=== PATIENT | female | born 1960 | race Two or more races ===

== ENCOUNTER 2024-09-29 13:05 | Inpatient (IN) | payer OTHER ==
[~2024-09-29] VITALS: Ht 162.6 cm; Wt 63.5 kg
[2024-09-29] MEDS ORDERED: METF-442 PO (13:18)
[2024-09-29 13:35] LABS: BASOPHILS # (AUTO) 0.2 K/UL (0.0-0.2); BASOPHILS % (AUTO) 2.4 % (0.0-2.0); EOSINOPHILS # (AUTO) 0.1 K/uL (0.0-0.7); EOSINOPHILS % (AUTO) 1.2 % (0.0-7.0); HEMATOCRIT 34.3 % (31.2-41.9); HEMOGLOBIN 10.6 g/dL (10.9-14.3); LYMPHOCYTES # (AUTO) 1.9 K/uL (0.8-4.8); LYMPHOCYTES % (AUTO) 28.3 % (20.5-51.5); MEAN CORPUSCULAR HEMOGLOBIN 19.1 uug (24.7-32.8); MEAN CORPUSCULAR HGB CONC 31 g/dL (32.3-35.6); MEAN CORPUSCULAR VOLUME 62.2 fL (75.5-95.3); MONOCYTES # (AUTO) 0.4 K/uL (0.1-1.30); MONOCYTES % (AUTO) 5.4 % (0.0-11.0); NEUTROPHILS # (AUTO) 4.3 K/uL (1.8-8.9); NEUTROPHILS % (AUTO) 62.7 % (38.5-71.5); PLATELET COUNT (AUTO) 214 K/uL (179-408); RED BLOOD CELL COUNT(AUTO) 5.52 MIL/uL (3.63-4.92); RED CELL DISTRIBUTION WIDTH 16.7 % (12.3-17.7); WHITE BLOOD COUNT (AUTO) 6.9 K/uL (3.8-11.8)
[2024-09-29 13:42] LABS: DIFFERENTIAL COMMENT 1
[2024-09-29] MEDS ORDERED: METOCLOPRAMIDE HCL 10 MG/2 ML VIAL ONE (13:46)
[2024-09-29] MEDS ORDERED: MORPHINE SULFATE 4 MG/1 ML DISP.SYRIN ONE (13:46)
[2024-09-29 13:50] LABS: CALCIUM 8.8 mg/dL (8.5-10.1); CREATININE 0.5 mg/dL (0.6-1.3); POTASSIUM 3.6 mmol/L (3.5-5.1)
[2024-09-29] MEDS: IV NORMAL SALINE 1000 ML BAG IV ONE (13:55)
[2024-09-29] MEDS: MORPHINE SULFATE 4 MG/1 ML DISP.SYRIN IV ONE (14:39)
[2024-09-29] MEDS: METOCLOPRAMIDE HCL 10 MG/2 ML VIAL IV ONE (14:39)
[2024-09-29 17:09] VITALS: BP 133/57; TEMP 98.5; O2SAT 96
[2024-09-29 19:45] VITALS: BP 149/65; TEMP 98.9; O2SAT 93
[2024-09-29] MEDS: MORPHINE SULFATE 2 MG/1 ML DISP.SYRIN IV PRN (20:58)
[2024-09-29] MEDS ORDERED: ACETAMINOPHEN 325 MG TABLET PO PRN (21:30)
[2024-09-29] MEDS ORDERED: REMEDY ESSENTIAL ZINC PASTE 113 GM TP PRN (21:30)
[2024-09-29] MEDS: IV NS 1000 ML 1,000 ML IV PRN (21:53)
[2024-09-29] MEDS: ENOXAPARIN SODIUM 40 MG/0.4 ML DISP.SYRIN SQ SCH (21:55)
[2024-09-29] MEDS ORDERED: DEXTROSE 50% 50 ML DISP.SYRIN IV PRN (23:00)
[2024-09-29] MEDS: BLOOD SUGAR DIAGNOSTIC 1 EACH STRIP VI SCH (23:25)
[2024-09-29] MEDS: INSULIN REGULAR, HUMAN 300 UNITS/3 ML VIAL SQ PRN (23:26)
[2024-09-30 05:12] VITALS: BP 148/75; TEMP 98.3; O2SAT 90
[2024-09-30 05:14] LABS: *BILIRUBIN,URIN NEGATIVE (NEGATIVE); *BLOOD, URINE 2+ (NEGATIVE); *CLARITY,URINE CLEAR (CLEAR); *COLOR,URINE YELLOW (YELLOW); *KETONES,URINE 2+ (NEGATIVE); *PROTEIN,URINE NEGATIVE (NEGATIVE); *UROBILINOGEN,URINE 0.2 E.U./dl (NORMAL); LEUKOCYTE ESTERASE ,URINE NEGATIVE (NEGATIVE); NITRITE, URINE NEGATIVE (NEGATIVE); PH,URINE 5.5 (5.0-8.0)
[2024-09-30 05:36] LABS: UGLUCOSE 2+ (NEGATIVE)
[2024-09-30 05:50] LABS: BACTERIA,URINE FEW /HPF (NONE SEEN); CALCIUM OXALATE CRYSTALS,UR FEW /HPF (NONE SEEN); SQUAMOUS EPITHELIAL CELL,UR FEW /HPF (NONE SEEN); WBC,URINE 0-3 /HPF (0-3)
[2024-09-30 05:51] LABS: CYSTINE CRYSTALS,URINE NONE SEEN /HPF (NONE SEEN)
[2024-09-30] MEDS: PANTOPRAZOLE SODIUM 40 MG TABLET.DR PO SCH (06:44)
[2024-09-30 06:50] LABS: BASOPHILS # (AUTO) 0.1 K/UL (0.0-0.2); BASOPHILS % (AUTO) 0.8 % (0.0-2.0); EOSINOPHILS % (AUTO) 0.3 % (0.0-7.0); HEMATOCRIT 32.5 % (31.2-41.9); HEMOGLOBIN 10.5 g/dL (10.9-14.3); LYMPHOCYTES # (AUTO) 2.7 K/uL (0.8-4.8); LYMPHOCYTES % (AUTO) 25.2 % (20.5-51.5); MEAN CORPUSCULAR HEMOGLOBIN 19.7 uug (24.7-32.8); MEAN CORPUSCULAR HGB CONC 32 g/dL (32.3-35.6); MEAN CORPUSCULAR VOLUME 61.4 fL (75.5-95.3); MONOCYTES # (AUTO) 0.7 K/uL (0.1-1.30); MONOCYTES % (AUTO) 6.7 % (0.0-11.0); NEUTROPHILS # (AUTO) 7.1 K/uL (1.8-8.9); PLATELET COUNT (AUTO) 218 K/uL (179-408); RED CELL DISTRIBUTION WIDTH 16.5 % (12.3-17.7); WHITE BLOOD COUNT (AUTO) 10.6 K/uL (3.8-11.8)
[2024-09-30 07:00] LABS: CALCIUM 8.8 mg/dL (8.5-10.1); CREATININE 0.5 mg/dL (0.6-1.3); MAGNESIUM 1.8 mg/dL (1.8-2.4); POTASSIUM 3.3 mmol/L (3.5-5.1)
[2024-09-30 07:07] LABS: DIFFERENTIAL COMMENT 1
[2024-09-30] MEDS: POTASSIUM CHLORIDE 20 MEQ TAB.PRT.SR PO ONE (09:33)
[2024-09-30] MEDS: ONDANSETRON 4 MG/2 ML VIAL IV PRN (09:51)
[2024-09-30 12:00] VITALS: BP 132/72; TEMP 97.9; O2SAT 93
[2024-09-30] MEDS: INSULIN REGULAR, HUMAN 1000 UNIT/10 ML VIAL SQ PRN (12:23)
[2024-09-30] MEDS ORDERED: PROPOFOL 200 MG/20 ML BOTTLE ONE (13:31)
[2024-09-30] MEDS ORDERED: MAGNESIUM SULFATE/D5W 100 ML ONE (13:38)
[2024-09-30] MEDS ORDERED: ROPIVACAINE HCL/PF 0.5% ( 5 MG/ML ) , 20 ML VIAL ONE (13:38)
[2024-09-30] MEDS ORDERED: MIDAZOLAM HCL 2 MG/2 ML VIAL ONE (13:38)
[2024-09-30] MEDS ORDERED: FENTANYL CITRATE 100 MCG/2 ML AMPUL ONE (13:38)
[2024-09-30] MEDS ORDERED: TRANEXAMIC ACID 1,000 MG/10 ML VIAL ONE (13:39)
[2024-09-30] MEDS ORDERED: KETAMINE HCL 500 MG/5 ML VIAL ONE (13:39)
[2024-09-30] MEDS ORDERED: VANCOMYCIN 1000 MG VIAL ONE (14:08)
[2024-09-30] MEDS ORDERED: HYDROMORPHONE 1 MG/1 ML DISP.SYRIN IV PRN (15:15)
[2024-09-30] MEDS ORDERED: ONDANSETRON 4 MG/2 ML VIAL IV PRN (15:15)
[2024-09-30] MEDS ORDERED: MEPERIDINE 25 MG/1 ML DISP.SYRIN IV PRN (15:15)
[2024-09-30 15:30] VITALS: O2SAT 95
[2024-09-30] MEDS ORDERED: IV D5W-0.45% NS +20 KCL 1,000 ML IV ONE (15:54)
[2024-09-30 16:20] VITALS: BP 130/58; TEMP 98.2; O2SAT 95
[2024-09-30] MEDS: MORPHINE SULFATE 2 MG/1 ML DISP.SYRIN IV PRN (17:04)
[2024-09-30] MEDS: HYDROCODONE/APAP 10-325 MG TABLET PO PRN (18:12)
[2024-09-30] MEDS: MORPHINE SULFATE 4 MG/1 ML DISP.SYRIN IV PRN (19:16)
[2024-09-30] MEDS: POTASSIUM CHLORIDE 20 MEQ in IV D5 1/2 NS 1000 ML 1,000 ML IV PRN (19:30)
[2024-09-30 20:00] VITALS: BP 162/61; TEMP 98; O2SAT 95
[2024-09-30] MEDS: CEFAZOLIN 1 G in IV DEXTROSE 5% 50 ML IV SCH (21:09)
[2024-10-01 06:00] VITALS: BP 149/58; TEMP 98.9; O2SAT 99
[2024-10-01 07:10] LABS: CALCIUM 8.5 mg/dL (8.5-10.1); CREATININE 0.5 mg/dL (0.6-1.3); POTASSIUM 3.8 mmol/L (3.5-5.1)
[2024-10-01] MEDS ORDERED: ERGO500040 PO (09:46)
[2024-10-01] MEDS ORDERED: EMPA10TA PO (09:46)
[2024-10-01] MEDS ORDERED: ESCI5TAB PO (09:46)
[2024-10-01 12:00] VITALS: BP 136/46; TEMP 97.8; O2SAT 97
[2024-10-01 16:00] VITALS: BP 129/56; TEMP 97.8; O2SAT 97
[2024-10-01 16:15] VITALS: O2SAT 95
[2024-10-01] MEDS: METFORMIN HCL 500 MG TABLET PO SCH (17:37)
[2024-10-01 20:00] VITALS: BP 144/64; TEMP 98.2; O2SAT 97
[2024-10-01] MEDS: ENOXAPARIN SODIUM 40 MG/0.4 ML DISP.SYRIN SQ SCH (20:32)
[2024-10-01] MEDS: MAGNESIUM HYDROXIDE 30 ML LIQUID UDC PO PRN (21:13)
[2024-10-02] VITALS (7 sets, daily range): BP systolic 131–145; BP diastolic 57–61; TEMP 97.9–98.1; O2SAT 93–96
[2024-10-02 06:55] LABS: BASOPHILS % (AUTO) 0.4 % (0.0-2.0); EOSINOPHILS # (AUTO) 0.1 K/uL (0.0-0.7); EOSINOPHILS % (AUTO) 0.7 % (0.0-7.0); HEMATOCRIT 28.7 % (31.2-41.9); HEMOGLOBIN 9.2 g/dL (10.9-14.3); LYMPHOCYTES % (AUTO) 19.8 % (20.5-51.5); MEAN CORPUSCULAR HEMOGLOBIN 19.6 uug (24.7-32.8); MEAN CORPUSCULAR HGB CONC 32 g/dL (32.3-35.6); MEAN CORPUSCULAR VOLUME 61.1 fL (75.5-95.3); MONOCYTES # (AUTO) 0.8 K/uL (0.1-1.30); MONOCYTES % (AUTO) 8.2 % (0.0-11.0); NEUTROPHILS # (AUTO) 7.2 K/uL (1.8-8.9); NEUTROPHILS % (AUTO) 70.9 % (38.5-71.5); PLATELET COUNT (AUTO) 185 K/uL (179-408); RED CELL DISTRIBUTION WIDTH 16.4 % (12.3-17.7); WHITE BLOOD COUNT (AUTO) 10.2 K/uL (3.8-11.8)
[2024-10-02 06:58] LABS: CALCIUM 8.2 mg/dL (8.5-10.1); CREATININE 0.5 mg/dL (0.6-1.3); POTASSIUM 3.5 mmol/L (3.5-5.1)
[2024-10-02 07:05] LABS: DIFFERENTIAL COMMENT 1
[2024-10-02] MEDS: ESCITALOPRAM OXALATE 10 MG TABLET PO SCH (08:24)
[2024-10-02] MEDS: EMPAGLIFLOZIN 10 MG TABLET PO SCH (08:24)
[2024-10-02] MEDS: BACLOFEN 10 MG TABLET PO SCH (10:47)
[2024-10-02] MEDS: GABAPENTIN 100 MG CAPSULE PO SCH (10:47)
[2024-10-02] MEDS ORDERED: MECLIZINE HCL 12.5 MG TABLET PO PRN (12:30)
[2024-10-02] MEDS ORDERED: SENNOSIDES 1 TABLET PO PRN (12:30)
[2024-10-02] MEDS: DOCUSATE SODIUM 100 MG CAPSULE PO SCH (12:45)
[2024-10-03 06:00] VITALS: BP 136/60; TEMP 98.2; O2SAT 95
[2024-10-03] MEDS ORDERED: BACL10TA PO (11:31)
[2024-10-03] MEDS ORDERED: GABA-532 PO (11:31)
[2024-10-03] MEDS ORDERED: HYDR-3980 PO (11:31)
[2024-10-03 11:45] VITALS: BP 139/54; TEMP 98.9; O2SAT 96
[2024-10-03] MEDS ORDERED: LOPE2TAB25 PO (11:49)
[2024-10-03] MEDS: LOPERAMIDE HCL 2 MG CAPSULE PO PRN (12:14)
[2024-10-03 14:31] VITALS: O2SAT 96
[2024-10-03 16:00] VITALS: BP 123/47; TEMP 98; O2SAT 95
[2024-10-03 19:00] VITALS: BP 136/59; TEMP 98.3; O2SAT 94
[2024-10-04 06:00] VITALS: BP 127/47; TEMP 97.9; O2SAT 93
[2024-10-04 11:07] VITALS: BP 146/59; TEMP 98.4; O2SAT 94
[2024-10-04 11:09] LABS: BASOPHILS # (AUTO) 0.1 K/UL (0.0-0.2); BASOPHILS % (AUTO) 0.5 % (0.0-2.0); EOSINOPHILS # (AUTO) 0.1 K/uL (0.0-0.7); EOSINOPHILS % (AUTO) 1.4 % (0.0-7.0); HEMATOCRIT 29.5 % (31.2-41.9); HEMOGLOBIN 9.1 g/dL (10.9-14.3); LYMPHOCYTES # (AUTO) 2.4 K/uL (0.8-4.8); LYMPHOCYTES % (AUTO) 24.4 % (20.5-51.5); MEAN CORPUSCULAR HEMOGLOBIN 19.3 uug (24.7-32.8); MEAN CORPUSCULAR HGB CONC 31 g/dL (32.3-35.6); MEAN CORPUSCULAR VOLUME 62.7 fL (75.5-95.3); MONOCYTES # (AUTO) 0.7 K/uL (0.1-1.30); MONOCYTES % (AUTO) 7.1 % (0.0-11.0); NEUTROPHILS # (AUTO) 6.5 K/uL (1.8-8.9); NEUTROPHILS % (AUTO) 66.6 % (38.5-71.5); PLATELET COUNT (AUTO) 264 K/uL (179-408); RED CELL DISTRIBUTION WIDTH 16.3 % (12.3-17.7); WHITE BLOOD COUNT (AUTO) 9.8 K/uL (3.8-11.8)
[2024-10-04 11:29] LABS: DIFFERENTIAL COMMENT 1
[2024-10-04 11:33] LABS: IRON, SERUM 37 ug/dL (50-175)
[2024-10-04 11:35] LABS: FERRITIN 497 ng/mL (8-252)
[2024-10-04] MEDS ORDERED: OXYCODONE/APAP 5-325 MG TABLET PO PRN (12:00)
[2024-10-04] MEDS ORDERED: OXYC-128 PO (13:00)
[2024-10-04] MEDS ORDERED: ENOX40DI SQ (13:02)
== END 2024-10-04 14:35 | DRG 308 ==
LOC: ER 13:05 → MEDSURG3 16:15
PROVIDERS: ADMIT Nurse Practitioner Acute Care; ATTEND Nurse Practitioner Acute Care
PROC: 0QS636Z Reposition Right Upper Femur with Intramedullary Internal Fixation Device, Percutaneous Approach (ICD-10-PCS; principal; 2024-09-30)
DX: S72.141A Displaced intertrochanteric fracture of right femur, initial encounter for closed fracture (principal); D50.9 Iron deficiency anemia, unspecified; D56.9 Thalassemia, unspecified; E11.65 Type 2 diabetes mellitus with hyperglycemia; F32.A Depression, unspecified; Z79.84 Long term (current) use of oral hypoglycemic drugs; Z90.49 Acquired absence of other specified parts of digestive tract; W01.0XXA Fall on same level from slipping, tripping and stumbling without subsequent striking against object, initial encounter; Y92.89 Other specified places as the place of occurrence of the external cause; Z79.899 Other long term (current) drug therapy; K59.00 Constipation, unspecified
CPT/HCPCS: 36415; 71045; 72170; 73120; 73502; 73503; 83550; 83735; 84100; 85025; A4606; A4649; A4663; A6209; C1713; G0378; J0690; J1100; J1650; J1815; J2250; J2270; J2405; J2765; J2795; J3010; J3370; J3475; J3480; J3490; J7040